=== PATIENT | female | born 1990 | race Caucasian/White ===

== ENCOUNTER 2016-12-28 11:49 | Emergency (ER) | payer MEDICAID ==
[~2016-12-28] VITALS: Ht 160 cm; Wt 55.0 kg
[2016-12-28 12:02] VITALS: BP 110/67
[2016-12-28] MEDS ORDERED: DEXAMETHASONE 1MG TABLET PO ONE (12:45)
== END 2016-12-28 13:25 | disposition home or self-care (01) ==
LOC: ER 12:46
DX: K12.0 Recurrent oral aphthae (principal); Z98.890 Other specified postprocedural states
CPT/HCPCS: 99282; J8540